=== PATIENT | female | born 1990 ===

== ENCOUNTER 2020-03-30 14:03 | Emergency (ER) | payer SELFPAY ==
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
[2020-03-30] MEDS ORDERED: Acetaminophen/HYDROcodone 325-5 MG Tab PO ONE (15:23)
== END 2020-03-30 15:50 | disposition home or self-care (01) ==
LOC: MW.ED 14:03
DX: S06.9X9A Unspecified intracranial injury with loss of consciousness of unspecified duration, initial encounter (principal); I10 Essential (primary) hypertension; J45.909 Unspecified asthma, uncomplicated; Z88.2 Allergy status to sulfonamides; Z79.84 Long term (current) use of oral hypoglycemic drugs; Y04.2XXA Assault by strike against or bumped into by another person, initial encounter
CPT/HCPCS: 70450; 70486; 73590; 99284; A9270